=== PATIENT | female | born 1985 | race Caucasian/White ===

== ENCOUNTER 2019-03-08 09:11 | Day surgery (SDC) | payer MEDICAID ==
[~2019-03-08] VITALS: Ht 160 cm; Wt 70.8 kg
[2019-03-08] MEDS ORDERED: LACTATED RINGERS 1,000 ML IV SCH (09:15)
[2019-03-08] MEDS ORDERED: METHYLENE BLUE 50 MG/10 ML AMP IV ONE (09:46)
[2019-03-08] MEDS ORDERED: INDOCYANINE GREEN 25 MG VIAL IV ONE (09:46)
[2019-03-08] MEDS ORDERED: SKIN ADHESIVE 0.7 GM EA TOP ONE (09:47)
[2019-03-08] MEDS ORDERED: BUPIVACAINE HCL/EPINEPHRINE 0.5%/0.0005 30ML ONE (09:47)
[2019-03-08] MEDS ORDERED: VASOPRESSIN 20 UNIT/ML 1ML ONE (09:47)
[2019-03-08 10:16] LABS: BASOPHILS % 0.9 % (0.0-2.0); EOSINOPHILS % 3.6 % (0.0-5.0); HEMATOCRIT. 43.2 % (36.0-48.0); HEMOGLOBIN. 14.4 g/dL (12.0-16.0); LYMPHOCYTES % 38.1 % (20.0-50.0); MEAN CORPUSCULAR HEMOGLOBIN 27.3 pg (28.0-32.0); MEAN PLATELET VOLUME 7.6 fl (7.4-10.4); MONOCYTES % 5.9 % (2.0-8.0); NEUTROPHILS % 51.5 % (40.0-76.0); PLATELET 300 x1000/uL (130-400); RED BLOOD CELL COUNT 5.27 mill/uL (4.2-5.4)
[2019-03-08] MEDS ORDERED: CEFAZOLIN SODIUM 1000MG/VIAL ONE (10:23)
[2019-03-08] MEDS ORDERED: EPHEDRINE SULFATE 50MG/ML VIAL ONE (10:24)
[2019-03-08] MEDS ORDERED: DEXAMETHASONE 4MG/ML 1ML VIAL ONE (10:24)
[2019-03-08] MEDS ORDERED: ONDANSETRON HCL 4MG/2ML INJ ONE (10:24)
[2019-03-08] MEDS ORDERED: METOCLOPRAMIDE HCL 10MG/2ML VIAL ONE (10:24)
[2019-03-08] MEDS ORDERED: PHENYLEPHRINE HCL 10 MG/ML 1ML (IV VIAL) IV ONE (10:24)
[2019-03-08] MEDS ORDERED: KETOROLAC 30MG/ML VIAL ONE (10:24)
[2019-03-08] MEDS ORDERED: DIPHENHYDRAMINE 50MG/ML VIAL ONE (10:24)
[2019-03-08] MEDS ORDERED: VECURONIUM BROMIDE 10 MG/VIAL IV ONE (10:25)
[2019-03-08] MEDS ORDERED: FENTANYL CITRATE/PF 50MCG/ML 2ML VIAL ONE (10:26)
[2019-03-08] MEDS ORDERED: PROPOFOL 200MG/20ML VIAL IV ONE (10:26)
[2019-03-08] MEDS ORDERED: MIDAZOLAM HCL 2 MG/2 ML VIAL ONE (10:27)
[2019-03-08 10:31] LABS: CHLORIDE 104 mEq/L (98-107)
[2019-03-08 10:36] LABS: HCG SCREEN NEGATIVE
[2019-03-08] MEDS ORDERED: SODIUM CHLORIDE 0.9% 10ML VIAL ONE (10:36)
[2019-03-08] MEDS ORDERED: BUPIVACAINE HCL/PF 0.5% (5MG/ML) 10ML ONE (10:43)
[2019-03-08] MEDS ORDERED: NEOSTIGMINE METHYLSULFATE 1MG/ML 10 ML VIAL ONE (11:45)
[2019-03-08] MEDS ORDERED: GLYCOPYRROLATE 0.2 MG/ML 2ML VIAL ONE (11:45)
[2019-03-08] MEDS ORDERED: ONDANSETRON HCL 4MG/2ML INJ IV PRN (12:30)
[2019-03-08] MEDS: HYDROMORPHONE HCL/PF 2MG/ML CPJ IV PRN ×2 (14:03→15:27)
[2019-03-08 15:27] VITALS: BP 125/86
== END 2019-03-08 15:45 | disposition home or self-care (01) ==
LOC: OR 09:11
PROVIDERS: ATTEND Obstetrics & Gynecology
DX: Z30.2 Encounter for sterilization (principal); N83.8 Other noninflammatory disorders of ovary, fallopian tube and broad ligament; Z98.891 History of uterine scar from previous surgery; Z98.82 Breast implant status; Z79.899 Other long term (current) drug therapy
CPT/HCPCS: 36415; 58661; 80048; 84703; 85025; 88302; G0168; J0690; J1100; J1170; J1200; J1885; J2250; J2370; J2405; J2704; J2710; J2765; J3010; J3490; J0171; Q9957; Q9968